=== PATIENT | female | born 1985 | race Caucasian/White ===

== ENCOUNTER 2020-12-15 15:38 | Emergency (ER) | payer BC ==
[2020-12-15 16:16] VITALS: BP 129/90; PULSE 90; TEMP 98.2; BMI 24.0
[2020-12-15 17:59] LABS: BASO % 0.9 % (0-2.0); EOS % 3.4 % (0-4.5); HEMATOCRIT 38.6 % (32.4-45.2); HEMOGLOBIN 13.2 GM/dL (10.7-15.3); LYMPH % 52.2 % (8-40); MCH 30.2 pg (25.7-33.7); MCHC 34.3 g/dl (32.0-36.0); MONO % 6.7 % (3.8-10.2); NEUT % 36.8 % (42.8-82.8); PLATELET COUNT 249 10^3/uL (134-434); RBC 4.39 M/mm3 (3.60-5.2); RDW 13.1 % (11.6-15.6); WHITE BLOOD COUNT 7.8 K/mm3 (4.0-10.0)
[2020-12-15 18:15] LABS: CALCIUM 8.7 mg/dL (8.5-10.1)
[2020-12-15 18:16] LABS: ALBUMIN 3.8 g/dl (3.4-5.0); BLOOD UREA NITROGEN 9.9 mg/dL (7-18)
[2020-12-15 18:18] LABS: EPI CELLS >36 /uL (0-25.1); HYALINE CASTS 5 /uL (0-3.1); PH,URINE 5.5 (5.0-8.0); URINE APPEARANCE CLOUDY; URINE BACTERIA 197 /uL (0-1359); URINE BILIRUBIN NEGATIVE (NEGATIVE); URINE COLOR YELLOW; URINE GLUCOSE (UA) NEGATIVE (NEGATIVE); URINE KETONE 3+ (NEGATIVE); URINE LEUK ESTERASE NEGATIVE (NEGATIVE); URINE NITRITE NEGATIVE (NEGATIVE); URINE PROTEIN TRACE (NEGATIVE); URINE RBC 14 /uL (0-23.9); URINE UROBILINOGEN 0.2 mg/dL (0.2-1.0); URINE WBC 7 /uL (0-25.8)
[2020-12-15 18:19] LABS: CREATININE 0.8 mg/dL (0.55-1.3)
[2020-12-15 18:21] LABS: TOT PROT 7.2 g/dl (6.4-8.2)
[2020-12-15 18:27] LABS: BILIRUBIN,TOTAL 0.4 mg/dL (0.2-1)
== END 2020-12-15 21:35 | disposition home or self-care (01) ==
LOC: JER 15:38
DX: O03.9 Complete or unspecified spontaneous abortion without complication (principal)
CPT/HCPCS: 36415; 76817-TC; 80053; 81003; 84702; 85025; 86850; 86900; 86901; 87086; 99284-25